=== PATIENT | male | born 1970 | race Caucasian/White ===

== ENCOUNTER 2024-12-26 05:52 | Day surgery (SDC) | payer BC, SELFPAY ==
[2024-12-26 06:10] VITALS: BMI 29.3
[2024-12-26 06:25] VITALS: BP 146/97; BMI 29.3
[2024-12-26] MEDS: TYLENOL 1000 MG PO (06:28)
[2024-12-26] MEDS: HEPARIN 5000 UNITS SC (06:28)
[2024-12-26] MEDS: NORMOSOL-R/PLASMALYTE-A 1000 IV (06:29)
[2024-12-26 07:39] VITALS: BP 111/75; BP 146/97
[2024-12-26 07:45] VITALS: BP 117/78
[2024-12-26 08:10] VITALS: BP 127/80
[2024-12-26 08:40] VITALS: BP 131/93
--- NOTE | 2024-12-27 12:23 | OR.RPT ---
Operative Report
Operative Report
Delayed entry from 12/26/24
Primary Surgeon: Theo
Assisting: Fausto BUTLER
Pre-op Diagnosis: Retained foreign body
Post-op Diagnosis: Same
Procedure Performed: Explantation of retained foreign body
Anesthesia Type: MAC local
Specimen / Cultures: Suture (not sent for path)
Estimated Blood Loss: 3cc
Complications: None immediate
Operative Findings: Prolene suture partially eventrating the gabriele-umbilical skin removed in toto
Date of Surgery: 12/26/24
Indications: This 54M developed a pain at his umbilicus following open umbilical hernia repair. A retained suture was suspected to be the source. Excision under MAC local was elected.
PROCEDURE: After informed consent was obtained, the patient was brought to the operative suite and placed supine on the operating table. The patient was sedated, prepped and draped in the usual sterile manner and an adequate local anesthetic was
administered using lidocaine with epinephrine.
The suture was visible under the skin, and the initial incision was made here with a #15 blade. The tail of the suture was xposed and grasped with a hemostat. The soft tissue around the suture was carefully dissected away bluntly until the loop of
the suture wasvisible. The suture was cut with sharlene and the entire loop, knot and tails was removed.
The wound was then irrigated with copious sterile saline, and hemostasis was obtained using Bovie electrocautery. The skin was approximated with 3-0 Vicryl deep dermal interrupted sutures and 4-0 monocryl suture in a subcuticular fashion. Topical
skin glue was then applied. All surgical counts were reported as correct.
The patient tolerated the procedure well and was taken to the PACU in stable condition.
== END 2024-12-26 08:45 | disposition home or self-care (01) ==
LOC: SDS 05:52
PROVIDERS: ATTENDING PHYSICIAN Surgery
DX: M79.5 Residual foreign body in soft tissue (principal); Z18.9 Retained foreign body fragments, unspecified material
CPT/HCPCS: 10120